=== PATIENT | male | born 2000 | race Two or more races ===

== ENCOUNTER 2023-04-16 16:29 | Emergency (ER) | payer OTHER ==
[~2023-04-16] VITALS: Ht 152.4 cm; Wt 140.6 kg
[2023-04-16] MEDS ORDERED: HYDROCHLOROTHIA25 MG PO (17:16)
[2023-04-16] MEDS ORDERED: AMLODIPINE BESYL5 MG PO (17:16)
== END 2023-04-16 22:47 | disposition home or self-care (01) ==
LOC: ER 16:29
DX: R51.9 Headache, unspecified (principal)